=== PATIENT | male | born 1990 | race Two or more races ===

== ENCOUNTER 2024-12-28 12:23 | Outpatient (CLI) | payer MEDICAID, SELFPAY | END 2024-12-28 12:24 | disposition home or self-care (01) | LOC: NFLDREF 12-31 18:02 | PROVIDERS: Visit Provider Nurse Practitioner Family | DX: E11.9 Type 2 diabetes mellitus without complications (principal); E78.5 Hyperlipidemia, unspecified; E66.3 Overweight | CPT/HCPCS: 80053; 80061; 82043; 82570 ==